=== PATIENT | female | born 1955 ===

== ENCOUNTER 2017-03-01 20:45 | Emergency (ER) | payer OTHER ==
[2017-03-01 20:50] VITALS: BMI 22.6
[2017-03-01 20:56] VITALS: RESP 18; TEMP 98.2
[2017-03-01] MEDS ORDERED: Alum-Mag Hydrox-Simethicone Susp (30 mL) PO STA (21:17)
[2017-03-01] MEDS ORDERED: Glucagon Recombinant 1 mg Inj IV STA (21:17)
[2017-03-01 21:39] LABS: BASO # 0.03 K/mm3 (0.0-2.0); BASO % 0.3 % (0.0-3.0); EOS # 0.7 (0.0-0.7); EOS % 5.8 % (1.5-5.0); GRAN # 7.62 (1.4-6.5); GRAN % 67.4 % (50.0-68.0); HEMATOCRIT 40.2 % (36.0-48.0); LYMPH # 2.5 (1.2-3.4); MEAN CELL VOLUME 92.6 fl (80.0-105.0); MEAN CORPUSCULAR HEMOGLOBIN 31.3 pg (25.0-35.0); MEAN CORPUSCULAR HGB CONC 33.8 g/dl (31.0-37.0); MEAN PLATELET VOLUME 9.1 fl (7.0-11.0); MONO # 0.5 (0.1-0.6); MONO % 4.5 % (1.0-6.0); RED CELL DISTRIBUTION WIDTH 13.8 % (11.5-14.5); WHITE BLOOD COUNT 11.3 10^3/ul (4.5-11.0)
[2017-03-01 21:47] LABS: INR 1.04 (0.93-1.08); PARTIAL THROMBOPLASTIN TIME 30.2 Seconds (25.1-36.5)
[2017-03-01 21:52] LABS: ALB/GLOB RATIO 1.3 (1.1-1.8); ALKALINE PHOSPHATASE 130 U/L (38-126); ALT/SGPT 78 U/L (7-56); AST/SGOT 57 U/L (14-36); BILIRUBIN,TOTAL 0.7 mg/dL (0.2-1.3); BLOOD UREA NITROGEN 9 mg/dL (7-21); CALCIUM 9.6 mg/dL (8.4-10.5); CARBON DIOXIDE 28 mmol/L (21-33); CHLORIDE 105 mmol/L (98-107); GFR AFRICAN-AMERICAN > 60; GLUCOSE,RANDOM 109 mg/dL (70-110); LIPASE 333 U/L (23-300); POTASSIUM 3.5 mmol/L (3.6-5.0); SODIUM 143 mmol/L (132-148); TOTAL PROTEIN 7.9 g/dL (5.8-8.3)
[2017-03-01] MEDS ORDERED: Iohexol 350 MG/100 ML VIAL ONE (22:01)
[2017-03-01 22:03] LABS: TROPONIN I < 0.01 ng/mL
--- NOTE | 2017-03-01 22:03 | ED PDOC ---
Arrival/HPI - General Chief Complaint: GI Problem Time Seen by Provider: 03/01/17 20:55 Historian: Patient, Family - History of Present Illness Narrative History of Present Illness (Text): you were treated in the ED today for having reflux and on prilosec and eating today and having epigastric pain going to the mid-sternum otherwise without any nausea/vomiting/headache/dizziness/difficulty breathing/numbness/tingling/loss of limb function/pain with urination/travel/prior blood clots/prior cancer/ prior hormone treatments. 03/01/17 22:00 03/01/17 23:38 Past Medical History - Provider Review Nursing Documentation Reviewed: Yes - Travel History Have you recently traveled outside [place] w/in the past 3 mons?: No - Cardiac Other/Comment: murmur - Psychiatric Hx Substance Use: No Family/Social History - Physician Review Nursing Documentation Reviewed: Yes Family/Social History: No Known Family HX Smoking Status: no Hx Alcohol Use: No Hx Substance Use: No Allergies/Home Meds Allergies/Adverse Reactions: Allergies Iodinated Contrast- Oral and IV Dye Allergy (Verified 03/01/17 22:27) ANAPHYLAXIS Home Medications: Home Meds Medication Instructions Recorded Confirmed No Known Home Med 03/01/17 03/01/17 Review of Systems - Review of Systems Constitutional: Normal Eyes: Normal ENT: Normal Respiratory: Normal Cardiovascular: Chest Pain Gastrointestinal: Abdominal Pain Genitourinary Female: Normal Musculoskeletal: Normal Skin: Normal Neurological: Normal Endocrine: Normal Hemo/Lymphatic: Normal Psychiatric: Normal Physical Exam Vital Signs Reviewed: Yes Vital Signs Temp Pulse Resp BP Pulse Ox 03/01/17 23:09 78 18 133/86 98 03/01/17 20:50 98.2 F 76 18 166/93 H 99 Temperature: Afebrile Blood Pressure: Hypertensive Pulse: Regular Respiratory Rate: Normal Appearance: Positive for: Well-Appearing, Non-Toxic, Uncomfortable Pain Distress: None Mental Status: Positive for: Alert and Oriented X 3 - Systems Exam Head: Present: Atraumatic, Normocephalic Pupils: Present: PERRL Extroacular Muscles: Present: EOMI Conjunctiva: Present: Normal Mouth: Present: Moist Mucous Membranes Nose (External): Present: Atraumatic Nose (Internal): Present: Normal Inspection Neck: Present: Normal Range of Motion Respiratory/Chest: Present: Clear to Auscultation, Good Air Exchange. No: Respiratory Distress, Accessory Muscle Use Cardiovascular: Present: Regular Rate and Rhythm, Normal S1, S2. No: Murmurs Abdomen: Present: Normal Bowel Sounds. No: Tenderness, Distention, Peritoneal Signs Back: Present: Normal Inspection Upper Extremity: Present: Normal Inspection. No: Cyanosis, Edema Lower Extremity: Present: Normal Inspection. No: Edema Neurological: Present: GCS=15, CN II-XII Intact, Speech Normal Skin: Present: Warm, Dry, Normal Color. No: Rashes Psychiatric: Present: Alert, Oriented x 3, Normal Insight, Normal Concentration Medical Decision Making ED Course and Treatment: you were treated in the ED today for having reflux and on prilosec and eating today and having epigastric pain going to the mid-sternum otherwise without any nausea/vomiting/headache/dizziness/difficulty breathing/numbness/tingling/loss of limb function/pain with urination/travel/prior blood clots/prior cancer/ prior hormone treatments. You were otherwise breathing easily, smiling with your fluorescent solution mixer, good strength/sensation, walking easily, clear lungs, no abdomen tenderness, no fever temp 98.2, stable heart rate 76, stable breathing rate 18, excellent oxygen level 99% room air, elevated blood pressure 166/93 which we recommend repeat in 2-3 days primary care office to determine further treatment, you have blood tests no infection count_11.3__, stable blood level hemoglobin_13.6__/platelets_344__, stable chemistry sodium_143__, potassium__3.5 __, bicarbonate_28___, chloride_105__, bun__9_, creatinine__0.7__, glucose__109_ _, moderate elevation of liver AST/ALT__57/78__, mild elevation Liver Alklaline Phosphatase 130, Liver bilirubin 0.7, magnesium 2.0, heart blood test__<0.01__, urine test trace leukocytes without any urinary discomfort thus no acute sign of infection, radiology CT chest/abdomen/pelvis without acute findings, ECG normal sinus rhythm, anti-acid medication, potassium done in the ED with improvement, counselled to stay in the hospital for further evaluation but you refused and cautioned for complications/ but you stated this is your reflux continue anti-acid control at home and thus discharged home with fluorescent solution mixer. 1. Recommend follow-up primary care 2-3 days to review symptoms, referral to gastroenterology clinic to review your symptoms and mildly elevated liver tests to ensure no complications and cardiology clinic to review symptoms , referral to pulmonary clinic for ct findings of left lung base scarring and hilar calcifications to ensure no complications, thoracic surgery for mediastinal calcifications to ensure no complications/cancer developement. . 4. If any worsening pain, fever, chills, nausea, vomiting, difficulty breathing, numbness, loss of limb function, pain with urination or any medical condition then return to the ED. 03/01/17 22:03 03/01/17 23:38 03/01/17 23:54 03/02/17 00:01 03/02/17 00:02 - Lab Interpretations Lab Results: 03/01/17 21:23 03/01/17 21:23 Lab Results 03/01/17 22:20: Urine Color Yellow, Urine Appearance Sl cloudy, Urine pH 7.0, Ur Specific [place] <= 1.005, Urine Protein Negative, Urine Glucose (UA) Negative, Urine Ketones Negative, Urine Blood Negative, Urine Nitrate Negative, Urine Bilirubin Negative, Urine Urobilinogen 0.2, Ur Leukocyte Esterase Trace H , Urine RBC 0 - 2, Urine WBC 0 - 2, Ur Epithelial Cells 0 - 2 03/01/17 21:23: Sodium 143, Potassium 3.5 L, Chloride 105, Carbon Dioxide 28, Anion Gap 14, BUN 9, Creatinine 0.7, Est GFR ( Amer) > 60, Est GFR (Non- Af Amer) > 60, Random Glucose 109, Calcium 9.6, Magnesium 2.0, Total Bilirubin 0.7, AST 57 H, ALT 78 H, Alkaline Phosphatase 130 H, Lactate Dehydrogenase 532, Total Creatine Kinase 97, Troponin I < 0.01, Total Protein 7.9, Albumin 4.4, Globulin 3.5, Albumin/Globulin Ratio 1.3, Lipase 333 H 03/01/17 21:23: PT 11.4, INR 1.04, APTT 30.2 03/01/17 21:23: WBC 11.3 H, RBC 4.34, Hgb 13.6, Hct 40.2, MCV 92.6, MCH 31.3, MCHC 33.8, RDW 13.8, Plt Count 344, MPV 9.1, Gran % 67.4, Lymph % (Auto) 22.0, [place] % (Auto) 4.5, Eos % (Auto) 5.8 H, Baso % (Auto) 0.3, Gran # 7.62 H, Lymph # 2.5, [place]ley # 0.5, Eos # 0.7, Baso # 0.03 I have reviewed the lab results: Yes - RAD Interpretation Radiology Orders: 03/01/17 22:28 CHEST,ABDOMEN, PELVIS W/O CONT [CT] 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 - EKG Interpretation Interpreted by ED Physician: Yes (NSR, flipped t waves avr, iii, v1, v2, v3) Type: 12 lead EKG - Medication Orders Current Medication Orders: Lactated Ringer's (Lactated Ringer's) 1,000 mls @ 150 mls/hr IV .Q6H40M HANS Last Admin: 03/01/17 22:50 Dose: 150 mls/hr eMAR Start Stop Document 03/01/17 22:50 GMD (Rec: 03/01/17 22:50 GMD [id number]) Intravenous Solution Start Date 03/01/17 Start Time 22:50 Discontinued Medications Al Hydrox/Mg Hydrox/Simethicone (Maalox Plus 30 Ml) 30 ml PO STAT STA Stop: 03/01/17 21:18 Last Admin: 03/01/17 21:32 Dose: 30 ml Glucagon (Glucagen Diagnostic Kit) 1 mg IV STAT STA Stop: 03/01/17 21:18 Last Admin: 03/01/17 21:32 Dose: 1 mg eMAR Start Stop Document 03/01/17 21:32 GMD (Rec: 03/01/17 21:32 GMD [id number]) Intravenous Solution Start Date 03/01/17 Start Time 21:32 Pantoprazole Sodium (Protonix Inj) 40 mg IVP STAT STA Stop: 03/01/17 21:17 Last Admin: 03/01/17 21:32 Dose: 40 mg IVP Administration Document 03/01/17 21:32 GMD (Rec: 03/01/17 21:32 GMD [id number]) Charges for Administration # of IVP Administrations 1 Potassium Chloride (K-Dur 20 Meq Er Tab) 40 meq PO STAT STA Stop: 03/01/17 22:07 Last Admin: 03/01/17 22:28 Dose: 40 meq Disposition/Present on Arrival - Present on Arrival Any Indicators Present on Arrival: No History of DVT/PE: No History of Uncontrolled Diabetes: No Urinary Catheter: No History of Decub. Ulcer: No History Surgical Site Infection Following: None - Disposition Have Diagnosis and Disposition been Completed?: Yes Diagnosis: Gastritis, Reflux gastritis Disposition: HOME/ ROUTINE Disposition Time: 00:03 Patient Plan: Discharge Patient Problems: Current Active Problems Problem Status Onset Gastritis Acute Reflux gastritis Acute Condition: IMPROVED Additional Instructions: you were treated in the ED today for having reflux and on prilosec and eating today and having epigastric pain going to the mid-sternum otherwise without any nausea/vomiting/headache/dizziness/difficulty breathing/numbness/tingling/loss of limb function/pain with urination/travel/prior blood clots/prior cancer/ prior hormone treatments. You were otherwise breathing easily, smiling with your fluorescent solution mixer, good strength/sensation, walking easily, clear lungs, no abdomen tenderness, no fever temp 98.2, stable heart rate 76, stable breathing rate 18, excellent oxygen level 99% room air, elevated blood pressure 166/93 which we recommend repeat in 2-3 days primary care office to determine further treatment, you have blood tests no infection count_11.3__, stable blood level hemoglobin_13.6__/platelets_344__, stable chemistry sodium_143__, potassium__3.5 __, bicarbonate_28___, chloride_105__, bun__9_, creatinine__0.7__, glucose__109_ _, moderate elevation of liver AST/ALT__57/78__, mild elevation Liver Alklaline Phosphatase 130, Liver bilirubin 0.7, magnesium 2.0, heart blood test__<0.01__, urine test trace leukocytes without any urinary discomfort thus no acute sign of infection, radiology CT chest/abdomen/pelvis without acute findings, ECG normal sinus rhythm, anti-acid medication, potassium done in the ED with improvement, counselled to stay in the hospital for further evaluation but you refused and cautioned for complications/ but you stated this is your reflux continue anti-acid control at home and thus discharged home with fluorescent solution mixer. 1. Recommend follow-up primary care 2-3 days to review symptoms, referral to gastroenterology clinic to review your symptoms and mildly elevated liver tests to ensure no complications and cardiology clinic to review symptoms , referral to pulmonary clinic for ct findings of left lung base scarring and hilar calcifications to ensure no complications, thoracic surgery for mediastinal calcifications to ensure no complications/cancer developement. . 4. If any worsening pain, fever, chills, nausea, vomiting, difficulty breathing, numbness, loss of limb function, pain with urination or any medical condition then return to the ED. Referrals: PCP,NO [Primary Care Provider] - Follow up with primary Forms: [employer] (I[place]ic)
[2017-03-01] MEDS ORDERED: Potassium Chloride 20 mEq ER Tab PO STA (22:06)
[2017-03-01 22:29] LABS: URINE BILIRUBIN NEGATIVE (NEGATIVE); URINE BLOOD NEGATIVE (NEGATIVE); URINE GLUCOSE (UA) NEGATIVE (NEGATIVE); URINE KETONE NEGATIVE (NEGATIVE); URINE LEUKOCYTE ESTERASE TRACE Leu/uL (NEGATIVE); URINE PROTEIN NEGATIVE mg/dL (<30 mg/dL); URINE UROBILINOGEN 0.2 E.U./dL (<1 E.U./dL)
[2017-03-01 22:30] LABS: URINE APPEARANCE SL CLOUDY (CLEAR); URINE COLOR YELLOW (YELLOW)
[2017-03-01] MEDS ORDERED: Lactated Ringer's 1,000 ML IV SCH (22:30)
[2017-03-01 22:46] LABS: URINE EPITHELIAL CELLS 0 - 2 /hpf (0-5); URINE RBC 0 - 2 /hpf (0-2); URINE WBC 0 - 2 /hpf (0-6)
[2017-03-01 23:10] VITALS: BP 133/86; PULSE 78; O2SAT 98
--- NOTE | 2017-03-01 23:34 | CT ---
EXAM: CT Chest Without Intravenous Contrast CT Abdomen and Pelvis Without Intravenous Contrast CLINICAL HISTORY: 61 years old, female; Pain; Abdominal pain; Localized; Upper; Chest pain; On breathing; Additional info: 61yof, iodine allergy, abd pain, elevated lipase. TECHNIQUE: Axial computed tomography images of the chest, abdomen and pelvis without intravenous contrast. All CT scans at this facility use one or more dose reduction techniques, viz.: automated exposure control; ma/kV adjustment per patient size (including targeted exams where dose is matched to indication; i.e. head); or iterative reconstruction technique. Coronal and sagittal reformatted images were created and reviewed. COMPARISON: No relevant prior studies available. FINDINGS: CHEST: Lungs: Subsegmental atelectasis versus scarring at left lung base. Pleural space: Unremarkable. No significant effusion. No pneumothorax. Heart: Mild cardiomegaly. No significant pericardial effusion. Mediastinum: Right hilar and mediastinal calcifications. ABDOMEN: Liver: Unremarkable. Gallbladder and bile ducts: Unremarkable. No calcified stones. No ductal dilation. Pancreas: Unremarkable. No ductal dilation. Spleen: Unremarkable. No splenomegaly. Adrenals: Unremarkable. No mass. Kidneys and ureters: Unremarkable. No obstructing stones. No hydronephrosis. Stomach and bowel: Unremarkable. No obstruction. Appendix: No findings to suggest acute appendicitis. PELVIS: Bladder: Unremarkable. No stones. Reproductive: Unremarkable as visualized. CHEST, ABDOMEN and PELVIS: Intraperitoneal space: Unremarkable. No significant fluid collection. No free air. Bones/joints: Scoliosis. No acute fracture. No dislocation. Soft tissues: Unremarkable. Vasculature: Atherosclerotic vascular disease. No aortic aneurysm. Lymph nodes: Unremarkable. No enlarged lymph nodes. IMPRESSION: 1. No acute abnormality in the thorax. 2. No jax-pancreatic inflammation or fluid. No pancreatic duct dilatation. 3. No calcified gallstones, or biliary duct dilatation. 4. Remainder of findings as above.
--- NOTE | 2017-03-02 09:40 | CARD ---
APPROVED REPORT EKG Measurement Heart [id number] [id number] <Conclusion> Normal sinus rhythm Normal ECG
== END 2017-03-02 00:14 | disposition home or self-care (01) ==
LOC: ED 20:45
DX: K21.9 Gastro-esophageal reflux disease without esophagitis (principal); K29.70 Gastritis, unspecified, without bleeding
CPT/HCPCS: 71250; 74176; 80053; 81001; 82550; 83615; 83690; 83735; 84484; 85025; 85610; 85730; 87086; 93005; 96374; 99284; C9113; J1610; J7120; Q9967